=== PATIENT | male | born 1950 | race Caucasian/White ===

== ENCOUNTER 2023-10-26 12:16 | Outpatient (CLI) | payer OTHER, SELFPAY ==
--- NOTE | 2023-10-26 12:29 | USCV_ITS ---
Dann Youngblood Age: 73 Gender: M : 1950 Exam Date: 10/26/2023 12:47 Ordering Phys: [place] Technologist: Exam Location: [facility] [place] Indication: cp sob ai BP: 124 / 72 HR: 65 Rhythm: Sinus Technical Quality: Adequate MEASUREMENTS (Male / Female) Normal Values 2D ECHO LV Diastolic Diameter PLAX 6.0 cm 4.2 - 5.9 / 3.9 - 5.3 cm IVS Diastolic Thickness 1.3 cm 0.6 - 1.0 / 0.6 - 0.9 cm IVS Systolic Thickness 1.6 cm LVPW Diastolic Thickness 1.1 cm 0.6 - 1.0 / 0.6 - 0.9 cm LVPW Systolic Thickness 1.3 cm LVOT Diameter 2.1 cm LV Ejection Fraction 2D Teich 51.6 % LV Ejection Fraction MOD 4C 58.5 % LV Ejection Fraction MOD 2C 37.7 % LV Ejection Fraction 2C AL 39.3 % LA Diameter 3.5 cm RA Systolic Volume 4C AL 37.4 ml RA Systolic Volume 4C MOD 36.1 ml Aorta at Sinotubular Diameter 2.9 cm IVC Diameter 1.7 cm M-MODE LA Ao Ratio MM 1.2 MV E Point Septal Separation 1.8 cm AV Cusp Separation MM 2.6 cm DOPPLER AV Peak Velocity 110.0 cm/s LVOT Peak Velocity 71.0 cm/s AV Area Cont Eq vti 3.0 cm squared AV Area Cont Eq pk 2.2 cm squared MV Peak Velocity 72.0 cm/s MV Area PHT 6.2 cm squared Mitral E to A Ratio 0.3 TV Peak Velocity 209.5 cm/s TR Peak Velocity 253.0 cm/s TR Peak Gradient 25.6 mmHg TV Peak E Velocity 58.0 cm/s Right Atrial Pressure 3.0 mmHg Pulmonary Artery Systolic Pressu 28.6 mmHg PV Peak Velocity 127.0 cm/s FINDINGS Left Ventricle Left ventricle is normal size. LV systolic function is moderate to severely reduced with EF of 30-35%. Moderate to severe global hypokinesis. Severe apical hypokinesis. Grade 1 diastolic dysfunction Right Ventricle Normal in size and function. Pacemaker lead is seen Right Atrium Normal in size. Pacemaker lead is seen Left Atrium Normal in size Mitral Valve Structurally normal valve. Mild mitral regurgitation. Aortic Valve Structurally normal aortic valve. Mild aortic regurgitation. No significant stenosis Tricuspid Valve Trace tricuspid regurgitation. Pulmonary artery systolic pressure is normal. Pulmonic Valve Mild pulmonic regurgitation. Pericardium Normal Aorta Normal in size IVC Appears to be normal CONCLUSIONS LV systolic function is moderate to severely reduced with EF of 30-35%. Grade 1 diastolic dysfunction Pacemaker lead is seen in right ventricle and atrium Mild mitral regurgitation Mild aortic regurgitation Trace tricuspid regurgitation Mild pulmonic regurgitation No comparison studies are available. Dakota Nguyen MD (Electronically Signed) Final Date: 26 October 2023 17:38 S
== END 2023-10-26 12:17 | disposition home or self-care (01) ==
LOC: RAD 12:22
PROVIDERS: Visit Provider Chiropractor
DX: I25.10 Atherosclerotic heart disease of native coronary artery without angina pectoris (principal); I51.89 Other ill-defined heart diseases; I34.0 Nonrheumatic mitral (valve) insufficiency; I35.1 Nonrheumatic aortic (valve) insufficiency; I37.1 Nonrheumatic pulmonary valve insufficiency
CPT/HCPCS: 93306